=== PATIENT | male | born 1985 | race Caucasian/White ===

== ENCOUNTER 2020-09-03 19:02 | Emergency (ER) | payer SELFPAY ==
[~2020-09-03] VITALS: Ht 162.6 cm; Wt 75.7 kg
[2020-09-03 19:04] VITALS: BP_SYST 157
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
--- NOTE | 2020-09-03 19:04 | NUR ---
Patient to ER bed H1 to gown for evaluation. Side rails up.
--- NOTE | 2020-09-03 19:10 | NUR ---
ER at bedside examining patient.
[2020-09-03 19:35] VITALS: BP_SYST 157
--- NOTE | 2020-09-03 19:37 | NUR ---
Patient given written and verbal discharge instructions and verbalizes understanding. ER MD discussed with patient the results and treatment provided. Patient in stable condition. ID arm band removed. No Rx of given. Patient educated on pain management and to follow up with PMD. Pain Scale 0/10. Opportunity for questions provided and answered. Medication side effect fact sheet provided.
== END 2020-09-03 19:35 ==
LOC: SED 19:02
DX: Z04.3 Encounter for examination and observation following other accident (principal); V49.9XXA Car occupant (driver) (passenger) injured in unspecified traffic accident, initial encounter; Y93.89 Activity, other specified; Y92.89 Other specified places as the place of occurrence of the external cause; Y99.8 Other external cause status
CPT/HCPCS: 99283